=== PATIENT | female | born 1980 | race Caucasian/White ===

== ENCOUNTER 2021-03-29 11:00 | Outpatient (RCR) | payer OTHER, SELFPAY ==
--- NOTE | 2021-02-09 09:52 | HMH.PTOPWND ---
Rehab Outpt Wound Evaluation Rehab OP Wound Evaluation Start: 02/09/21 08:12 Freq: Status: Active Protocol: Document 02/09/21 09:47 [facility] (Rec: 02/09/21 09:52 PHOSAVITA [id number]) Electronically Signed By Chris Rojo, PT 02/09/21 09:47 Subjective/History History History Pt is 41 yowf who presents with c/o B LE edema x ~ 5 mos, R > L. She reports insidious onset of symptoms and increased pain in B LE intermittently over the past 1 -2 mos. She reports minimal tenderness to palpation at this time, but it does sometimes increase. SHe reports hx of HTN, but otherwise nothing significant. Subjective Subjective Currently pain 0/10, at worst 9/10. Intermittent numbness/ tingling in B LE, but not in a particular pattern. Signs and symptoms consistent with Lipidema. Lymphedema Eval Classification of Lymphedema Secondary Lymphedema Yes: Lipidema Stemmer's sign Stemmer's Sign no Stage of Lymphedema Lymphedema stages Stage 0 (subjective c/o heaviness and aching) Skin Changes Dry Skin Yes Other Changes Yes Pain Scale Pain Scale (0-10) 9 Affected Extremities Areas Affected by Lymphedema/Edema Right Upper Extremity,Left Upper Extremity,Right Lower Extremity,Left Lower Extremity Manual Lymphatic Drainage Treatment Area MLD Treatment Area Right Lower Extremity,Left Lower Extremity Wound Problems/Impairments Impairments Problems/Impairmments Palpation Tenderness,Impaired Endurance,Impaired Recreational Activities, Increased Edema,Lymphedema Present,Subjective C/O Pain, Impaired Self Care/Self Management Prognosis Rehab Potential Good Clinical Impression Consistent with Diagnosis Yes Consistent with Lipidema Short Term Goals Number of Weeks 4 Decreased Palpation Tenderness Yes Decrease Edema Yes Decrease Subjective C/O Pain Yes: 6/10 Patient to Understand Lymphedema Yes Treatment and Exercises [employer] Go
--- NOTE | 2021-03-16 11:32 | HMH.RHREAS ---
Rehab Reassessment Rehab OP Re-assessment Start: 03/16/21 11:27 Freq: Status: Active Protocol: Document 03/16/21 11:28 [facility] (Rec: 03/16/21 11:32 [facility] [id number]) Electronically Signed By Chris Rojo, PT 03/16/21 11:28 Rehab Re-assessment Subjective Subjective Pt reports less pain overall and less numbness/tingling. Pain at worst now 5/10. Objective Objective Notes Palpation tenderness: 1/4 to B lower legs at worst. B LE edema: Decreased fibrotic tissue quality with less resistence to compression noted. Assessment Progress Assessment Progressing as Expected Assessment Notes Pt with much less pain overall and edema is decreased. She does continue to present with sensation of heaviness in B LE at times. She has also changed her diet to help decrease her edema, which seems to be helping already. Patient goals met ST,2,3,4 Goals Not Met LT,2,3,4,5,6 Revised Goals none Plan Plan Continue per initial POC. Frequency of Therapy 2 x/wk Duration of therapy 8 wks Time and Billing Re-Eval Time 15 Re-Eval Billing Units 1 PHYSICIAN CERTIFICATION: I certify the specified therapy services for Katie Wagoner are required, authorized, and reviewed every 30 days.
== END 2021-03-29 11:05 | disposition home or self-care (01) ==
LOC: PT 11:00
PROVIDERS: PCP Nurse Practitioner Family; Visit Provider Nurse Practitioner Family
DX: M79.89 Other specified soft tissue disorders (principal)
CPT/HCPCS: 97140; 97162; 97164; 97760

== ENCOUNTER 2022-03-01 09:00 | Outpatient (RCR) | payer OTHER, SELFPAY ==
--- NOTE | 2022-02-18 10:41 | HMH.PTOPWND ---
Rehab Outpt Wound Evaluation Rehab OP Wound Evaluation Start: 02/18/22 10:15 Freq: Status: Active Protocol: Document 02/18/22 10:31 [facility] (Rec: 02/18/22 10:40 [facility] [id number]) Electronically Signed By Chris Rojo, PT 02/18/22 10:31 Subjective/History History History Pt is 42 yowf who presents with c/o B LE pain and swellingfor several years. She reports symptoms have been worse in the R LE for ~ 6 mos after having some veins done. She reports since this vein closure procedure she has sufferd significant increase in R LE pain and tenderness. She has previously been seen in our clinic with good results from treatment. She reports no significant PMH. Subjective Subjective Currently pain 6/10, worst in R LE. Palpation tenderness: 3/ 4 R LE, 2/4 L LE. Palpation tenderness much worse to R lower leg, mid to upper calf. Minimal small nodules noted to B lateral thigh. No pitting edema noted at this time. Signs and symptoms consostent with Lipidema Lymphedema Eval Classification of Lymphedema Secondary Lymphedema Yes: Lipidema Stemmer's sign Stemmer's Sign no Stage of Lymphedema Lymphedema stages Stage II (Pitting edema, increased fibrosis w/ decreased pitting) Skin Changes Dry Skin Yes Skin Folds Yes Redness Yes Discoloration of Skin Yes Other Changes Yes Pain Scale Pain Scale (0-10) 6 Affected Extremities Areas Affected by Lymphedema/Edema Right Lower Extremity,Left Lower Extremity Manual Lymphatic Drainage Treatment Area MLD Treatment Area Right Lower Extremity,Left Lower Extremity Wound Problems/Impairments Impairments Problems/Impairmments Palpation Tenderness,Impaired Range of Motion,Impaired Endurance,Impaired Walking, Impaired Standing,Impaired Recreational Activities, Increased Edema,Lymphede
== END 2022-03-01 09:05 | disposition home or self-care (01) ==
LOC: PT 09:00
PROVIDERS: PCP Nurse Practitioner Family; Visit Provider Nurse Practitioner Family
DX: R60.0 Localized edema (principal); I89.0 Lymphedema, not elsewhere classified
CPT/HCPCS: 97140; 97162

== ENCOUNTER → 2022-09-09 13:47 | Outpatient (CLI) | payer OTHER, SELFPAY ==
--- NOTE | 2022-09-09 13:55 | XR_ITS ---
FINAL REPORT CLINICAL HISTORY: PAIN IN LATERAL PORTION RT KNEE FINDINGS: Three views of the right knee reveal no evidence of fracture or dislocation. The bony alignment is normal. The joint spaces are preserved. There is no evidence of joint effusion. No localized soft tissue abnormality is identified. IMPRESSION: No acute abnormality identified. Reviewed, Interpreted and Dictated by Titi Le III, MD Transcribed by Ramila Barragan Authenticated and . [facility]
[2022-09-09 15:32] LABS: Basophils % 0.6 % (0.1-2.0); Eosinophils % 0.7 % (0.1-12.0); Hematocrit 36.1 % (37.0-47.0); Hemoglobin 11.7 g/dL (12.2-16.2); Lymphocytes # 1.4 K/mm3 (0.7-4.5); Lymphocytes % 22.8 % (10-50); Mean Corpuscular HGB Conc 32.4 g/dL (31.8-35.4); Mean Corpuscular Hemoglobin 27.2 pg (27.0-31.2); Mean Corpuscular Volume 83.7 fl (81-99); Mean Platelet Volume 8.3 fl (7.4-10.4); Monocytes # 0.2 K/mm3 (0.1-1.0); Monocytes % 3.4 % (1.7-9.3); Neutrophils # 4.6 K/mm3 (1.8-7.8); Neutrophils % 72.5 % (37.0-80.0); Platelet Count 261 K/mm3 (142-424); Red Blood Count 4.31 M/mm3 (4.20-5.40); Red Cell Distribution Width 14.9 % (11.5-17.5); White Blood Count 6.3 K/mm3 (4.8-10.8)
[2022-09-09 15:33] LABS: Hemoglobin A1C 5.3 % (4.0-6.0)
[2022-09-09 16:10] LABS: Erythrocyte Sedimentation Rate 31 mm/hr (0-20)
[2022-09-09 16:13] LABS: Alanine Aminotransferase 19 U/L (12-78); Albumin Level 4.5 g/dl (3.5-5.0); Albumin/Globulin Ratio 1.5 (1.1-1.8); Alkaline Phosphatase 83 U/L (38-126); Anion Gap 10.5 mEq/L (5-15); Aspartate Amino Transferase 20 U/L (14-36); Bilirubin,Total 0.3 mg/dl (0.2-1.3); Blood Urea Nitrogen 12 mg/dl (7-17); Carbon Dioxide 27 mmol/L (22.0-30.0); Chloride 104 mmol/L (98-107); Chol/HDL Ratio 3.5 (1-3.5); Cholesterol 187 mg/dl (140-200); Estimated Glomerular Filt Rate 92 ml/min (>60); GFR (African American) 111 ML/MIN (>60); Glucose 101 mg/dl (74-100); HDL Cholesterol 54 mg/dl (40-60); Potassium 4.5 mmoL/L (3.5-5.1); Sodium 137 mmol/L (136-145); Total Protein,Serum 7.5 g/dl (6.3-8.2); Triglycerides 65 mg/dl (30-150); VLDL Cholesterol 13 mg/dL (0-40)
[2022-09-09 16:25] LABS: Direct LDL Cholesterol 99.75 mg/dL (100-129)
[2022-09-09 16:29] LABS: 25-OH Vitamin D, Total 17.6 ng/mL (30-100)
[2022-09-09 16:30] LABS: Triiodothryronine (T3) Uptake 30 % (23.5-40.5)
[2022-09-09 16:31] LABS: Free Thyroxine Index 2.3 ug/dL (5.93-13.13); T4 (Thyroxine) 7.8 ug/dl (5.53-11.0)
[2022-09-09 16:45] LABS: Thyroid Stimulating Hormone 1.77 uIU/mL (0.465-4.68)
[2022-09-09 17:18] LABS: Vitamin B12 396 pg/mL (239-931)
[2022-09-09 17:19] LABS: Folate 7.37 ng/mL
== END ==
PROVIDERS: PCP Nurse Practitioner Family; Visit Provider Nurse Practitioner Family
DX: R20.2 Paresthesia of skin (principal); E53.8 Deficiency of other specified B group vitamins; E66.9 Obesity, unspecified; Z68.41 Body mass index [BMI] 40.0-44.9, adult
CPT/HCPCS: 36415; 73562; 80053; 80061; 82306; 82607; 82746; 83036; 84436; 84443; 84479; 85025; 85651